=== PATIENT | female | born 1960 | race African-American/Black ===

== ENCOUNTER 2023-03-02 15:53 | Inpatient (IN) | payer OTHER, BC ==
[2023-03-02 21:10] LABS: BASO % 0.7 % (0-2.0); EOS % 3.8 % (0-4.5); HEMATOCRIT 38.8 % (32.4-45.2); HEMOGLOBIN 11.8 GM/dL (10.7-15.3); LYMPH % 28.2 % (8-40); MCH 23.3 pg (25.7-33.7); MCHC 30.4 g/dl (32.0-36.0); MEAN CELL VOLUME 76.5 fl (80-96); MEAN PLT VOLUME 10.2 fl (7.5-11.1); MONO % 8.2 % (3.8-10.2); NEUT % 59.1 % (42.8-82.8); PLATELET COUNT 176 10^3/uL (134-434); RBC 5.07 M/mm3 (3.60-5.2); RDW 17.1 % (11.6-15.6); WHITE BLOOD COUNT 7.9 K/mm3 (4.0-10.0)
[2023-03-02 21:36] LABS: POTASSIUM 3.9 mmol/L (3.5-5.1)
[2023-03-02 21:38] LABS: CALCIUM 9.3 mg/dL (8.5-10.1)
[2023-03-02 21:39] LABS: ALBUMIN 3.7 g/dl (3.4-5.0); BLOOD UREA NITROGEN 9.6 mg/dL (7-18)
[2023-03-02 21:42] LABS: CREATININE 0.4 mg/dL (0.55-1.3)
[2023-03-02 21:44] LABS: BILIRUBIN,TOTAL 0.5 mg/dL (0.2-1); TOT PROT 5.6 g/dl (6.4-8.2)
[2023-03-02 22:12] LABS: INR 1.14 (0.83-1.09); PROTHROMBIN TIME (PATIENT) 13.2 SEC (9.7-13.0)
[2023-03-02 22:14] LABS: ACTIVATED PTT 35.4 SECONDS (25.2-36.5)
[2023-03-02] MEDS ORDERED: MEROPENEM 1 GM in DEXTROSE 5%-WATER 100 ML IVPB ONE (22:18)
[2023-03-02] MEDS ORDERED: CEFTRIAXONE 1 GM in DEXTROSE 5%-WATER - 50 ML IVPB ONE (22:19)
[2023-03-02] MEDS ORDERED: CEFTRIAXONE 1 GM/50 ML BAG ONE (22:21)
[2023-03-02] MEDS ORDERED: MEROPENEM 1 GM VIAL (RESTRICTED TO ID) IVPB ONE (23:01)
[2023-03-03] MEDS ORDERED: MEROPENEM 500 MG in DEXTROSE 5%-WATER 100 ML IVPB SCH (02:00)
[2023-03-03] MEDS ORDERED: NITROGLYCERIN SUBLINGUAL 1/150 0.4 MG TAB SL PRN (02:19)
[2023-03-03] MEDS ORDERED: PATIENT'S OWN MEDICATION (NON-FORMULARY) (Lactose-Reduced Food/Fiber [Jevity 1.5 Cal Liqui PO SCH (02:20)
[2023-03-03] MEDS ORDERED: PANTOPRAZOLE SOD 40 MG SUSPENSION PACKET PO SCH (02:20)
[2023-03-03] MEDS: MEROPENEM 500 MG in DEXTROSE 5%-WATER 100 ML IVPB SCH ×2 (03:20→12:03)
[2023-03-03] MEDS: PATIENT'S OWN MEDICATION (NON-FORMULARY) (Omeprazole/Sodium Bicarbonate [Omeprazole-Bicarb PO SCH (03:37)
[2023-03-03] MEDS: ACETAMINOPHEN 1000 MG/100 ML BAG IVPB PRN ×3 (03:50→22:11)
[2023-03-03] MEDS ORDERED: [UNRECOGNIZED DRUG - OTHER] TP SCH (10:00)
[2023-03-03] MEDS ORDERED: CHOLECALCIFEROL (VIT D3) 5000 UNITS (125 MCG) CAP PO SCH (10:00)
[2023-03-03] MEDS: METOPROLOL TARTRATE 25 MG TABLET (FP) PO SCH ×3 (10:00→22:04)
[2023-03-03] MEDS ORDERED: DOCUSATE SODIUM 100 MG CAPSULE (FP) PO SCH (10:00)
[2023-03-03] MEDS ORDERED: METOPROLOL TARTRATE 25 MG TABLET (FP) PO SCH (10:00)
[2023-03-03] MEDS: FERROUS SO4 325 MG TABLET (FP) PO SCH (10:11)
[2023-03-03] MEDS: ASPIRIN 81 MG CHEWABLE TABLETS PO SCH (10:11)
[2023-03-03] MEDS: ENOXAPARIN NA (PORCINE) 40 MG/0.4 ML DISP.SYRIN SQ SCH (10:11)
[2023-03-03] MEDS: PANTOPRAZOLE 40 MG TABLET PO SCH ×2 (10:11→22:03)
[2023-03-03] MEDS ORDERED: DOXYCYCLINE INJECTION 100 MG in DEXTROSE 5%-WATER 100 ML IVPB SCH (10:45)
[2023-03-03 11:28] LABS: CHLORIDE 110 mmol/L (98-107); SODIUM 145 mmol/L (136-145)
[2023-03-03 11:45] LABS: BASO % 0.8 % (0-2.0); EOS % 3.2 % (0-4.5); HEMATOCRIT 41.8 % (32.4-45.2); HEMOGLOBIN 12.2 GM/dL (10.7-15.3); LYMPH % 31.2 % (8-40); MCHC 29.1 g/dl (32.0-36.0); MEAN CELL VOLUME 79.2 fl (80-96); MONO % 9.6 % (3.8-10.2); NEUT % 55.2 % (42.8-82.8); PLATELET COUNT 168 10^3/uL (134-434); RBC 5.28 M/mm3 (3.60-5.2); RDW 17.4 % (11.6-15.6)
[2023-03-03 11:49] LABS: IRON SERUM 22 ug/dL (50-175); TOTAL IRON BINDING CAPACITY 311 ug/dL (250-450)
[2023-03-03 12:26] LABS: ANION GAP 17 MMOL/L (8-16); CO2 18 mmol/L (21-32)
[2023-03-03 12:27] LABS: CALCIUM 9.3 mg/dL (8.5-10.1); ERYTHROCYTE SEDIMENTATION RATE 8 mm/hr (0-30)
[2023-03-03 12:28] LABS: ALBUMIN 3.4 g/dl (3.4-5.0); BLOOD UREA NITROGEN 12.3 mg/dL (7-18)
[2023-03-03 12:31] LABS: CREATININE 0.4 mg/dL (0.55-1.3); PHOSPHOROUS 3.3 mg/dL (2.5-4.9); SGOT/AST 10 U/L (15-37); SGPT/ALT 9 U/L (13-61)
[2023-03-03 12:32] LABS: BILIRUBIN,TOTAL 0.6 mg/dL (0.2-1); GLUCOSE,RANDOM 39 mg/dL (74-106); TOT PROT 5.6 g/dl (6.4-8.2)
[2023-03-03 12:33] LABS: ALK PHOS 139 U/L (45-117)
[2023-03-03] MEDS ORDERED: CHOLECALCIFEROL (VIT D3 5000 UNITS) 125 MCG TAB PO SCH (14:15)
[2023-03-03] MEDS ORDERED: IRON SUCROSE INJECTION 200 MG in SODIUM CHLORIDE 90 ML IVPB ONE (14:30)
[2023-03-03] MEDS: DOCUSATE NA 100 MG/10 ML UNIT-DOSE CUPS PO SCH (15:00)
[2023-03-03] MEDS: MEROPENEM 1 GM in DEXTROSE 5%-WATER 100 ML IVPB SCH (17:29)
[2023-03-03 19:31] LABS: POTASSIUM 4.3 mmol/L (3.5-5.1)
[2023-03-03 19:32] LABS: CALCIUM 8.7 mg/dL (8.5-10.1)
[2023-03-03 19:33] LABS: BLOOD UREA NITROGEN 11.6 mg/dL (7-18)
[2023-03-03 19:36] LABS: CREATININE 0.5 mg/dL (0.55-1.3)
[2023-03-04] MEDS: MEROPENEM 1 GM in DEXTROSE 5%-WATER 100 ML IVPB SCH ×3 (02:02→18:30)
[2023-03-04] MEDS: MEROPENEM 500 MG in DEXTROSE 5%-WATER 100 ML IVPB SCH ×2 (07:54→07:55)
[2023-03-04] MEDS ORDERED: MEROPENEM 1 GM VIAL (RESTRICTED TO ID) IVPB ONE (10:36)
[2023-03-04 10:54] LABS: BASO % 0.9 % (0-2.0); EOS % 10.6 % (0-4.5); HEMATOCRIT 41.4 % (32.4-45.2); LYMPH % 28.3 % (8-40); MCH 23.7 pg (25.7-33.7); MCHC 31.3 g/dl (32.0-36.0); MEAN CELL VOLUME 75.6 fl (80-96); MEAN PLT VOLUME 10.9 fl (7.5-11.1); MONO % 11.9 % (3.8-10.2); NEUT % 48.3 % (42.8-82.8); RBC 5.48 M/mm3 (3.60-5.2); RDW 17.1 % (11.6-15.6); WHITE BLOOD COUNT 7.5 K/mm3 (4.0-10.0)
[2023-03-04] MEDS: ENOXAPARIN NA (PORCINE) 40 MG/0.4 ML DISP.SYRIN SQ SCH (11:09)
[2023-03-04] MEDS: PANTOPRAZOLE 40 MG TABLET PO SCH ×2 (11:09→21:52)
[2023-03-04] MEDS: METOPROLOL TARTRATE 25 MG TABLET (FP) PO SCH ×2 (11:09→21:52)
[2023-03-04] MEDS: DOCUSATE NA 100 MG/10 ML UNIT-DOSE CUPS PO SCH (11:09)
[2023-03-04] MEDS: FERROUS SO4 325 MG TABLET (FP) PO SCH (11:09)
[2023-03-04] MEDS: ASPIRIN 81 MG CHEWABLE TABLETS PO SCH (11:09)
[2023-03-04] MEDS: CHOLECALCIFEROL (VIT D3 5000 UNITS) 125 MCG TAB PO SCH (11:10)
[2023-03-04 11:14] LABS: ALBUMIN 3.1 g/dl (3.4-5.0); BILIRUBIN,TOTAL 0.4 mg/dL (0.2-1); BLOOD UREA NITROGEN 6.7 mg/dL (7-18); CALCIUM 9.1 mg/dL (8.5-10.1); CREATININE 0.4 mg/dL (0.55-1.3); MAGNESIUM 1.9 mg/dL (1.8-2.4); PHOSPHOROUS 2.5 mg/dL (2.5-4.9); POTASSIUM 4.3 mmol/L (3.5-5.1); TOT PROT 5.5 g/dl (6.4-8.2)
[2023-03-04 11:58] LABS: PLATELET COUNT 179 10^3/uL (134-434)
[2023-03-04 12:38] VITALS: BMI 18.1
[2023-03-04] MEDS: oxyCODONE HCL 5 MG TABLET PO PRN (15:31)
[2023-03-04] MEDS: COLLAGENASE CLOSTRIDIUM HIST. 30 GRAMS TUBE TP SCH (16:30)
[2023-03-05] MEDS: MEROPENEM 1 GM in DEXTROSE 5%-WATER 100 ML IVPB SCH ×3 (01:20→17:15)
[2023-03-05] MEDS: ACETAMINOPHEN 1000 MG/100 ML BAG IVPB PRN ×2 (07:23→17:13)
[2023-03-05 09:16] LABS: BASO % 0.5 % (0-2.0); EOS % 9.2 % (0-4.5); HEMATOCRIT 39.8 % (32.4-45.2); HEMOGLOBIN 12.1 GM/dL (10.7-15.3); LYMPH % 34.1 % (8-40); MCH 23.5 pg (25.7-33.7); MCHC 30.4 g/dl (32.0-36.0); MEAN CELL VOLUME 77.2 fl (80-96); MEAN PLT VOLUME 10.4 fl (7.5-11.1); MONO % 11.4 % (3.8-10.2); NEUT % 44.8 % (42.8-82.8); PLATELET COUNT 186 10^3/uL (134-434); RBC 5.16 M/mm3 (3.60-5.2); RDW 17.3 % (11.6-15.6); WHITE BLOOD COUNT 7.8 K/mm3 (4.0-10.0)
[2023-03-05 09:43] LABS: POTASSIUM 4.4 mmol/L (3.5-5.1)
[2023-03-05] MEDS: ENOXAPARIN NA (PORCINE) 40 MG/0.4 ML DISP.SYRIN SQ SCH (09:44)
[2023-03-05] MEDS: DOCUSATE NA 100 MG/10 ML UNIT-DOSE CUPS PO SCH (09:44)
[2023-03-05] MEDS: PANTOPRAZOLE 40 MG TABLET PO SCH ×2 (09:44→21:25)
[2023-03-05] MEDS: METOPROLOL TARTRATE 25 MG TABLET (FP) PO SCH ×2 (09:45→21:25)
[2023-03-05] MEDS: FERROUS SO4 325 MG TABLET (FP) PO SCH (09:45)
[2023-03-05] MEDS: ASPIRIN 81 MG CHEWABLE TABLETS PO SCH (09:45)
[2023-03-05 09:46] LABS: BLOOD UREA NITROGEN 10.5 mg/dL (7-18)
[2023-03-05 09:47] LABS: ALBUMIN 2.8 g/dl (3.4-5.0); MAGNESIUM 1.9 mg/dL (1.8-2.4)
[2023-03-05] MEDS: COLLAGENASE CLOSTRIDIUM HIST. 30 GRAMS TUBE TP SCH (09:48)
[2023-03-05 09:49] LABS: PHOSPHOROUS 2.3 mg/dL (2.5-4.9)
[2023-03-05 09:50] LABS: CREATININE 0.5 mg/dL (0.55-1.3)
[2023-03-05] MEDS: CHOLECALCIFEROL (VIT D3 5000 UNITS) 125 MCG TAB PO SCH (09:50)
[2023-03-05 09:51] LABS: BILIRUBIN,TOTAL 0.5 mg/dL (0.2-1); TOT PROT 4.9 g/dl (6.4-8.2)
[2023-03-05] MEDS: PATIENT'S OWN MEDICATION (NON-FORMULARY) (Omeprazole/Sodium Bicarbonate [Omeprazole-Bicarb PO SCH ×2 (11:56→11:57)
[2023-03-05] MEDS: SILVER SULFADIAZINE 1% TOP CREAM 50 GM JAR TP SCH ×2 (12:15→21:25)
[2023-03-05] MEDS ORDERED: NAPH,MB-DB/K PH,MBDB POWDER PACKET PO ONE (17:17)
[2023-03-06] MEDS: MEROPENEM 1 GM in DEXTROSE 5%-WATER 100 ML IVPB SCH ×3 (01:00→19:55)
[2023-03-06] MEDS: METOPROLOL TARTRATE 25 MG TABLET (FP) PO SCH ×2 (09:18→21:20)
[2023-03-06] MEDS: ASPIRIN 81 MG CHEWABLE TABLETS PO SCH (09:18)
[2023-03-06] MEDS: PANTOPRAZOLE 40 MG TABLET PO SCH ×2 (09:18→21:20)
[2023-03-06] MEDS: FERROUS SO4 325 MG TABLET (FP) PO SCH (09:18)
[2023-03-06] MEDS: CHOLECALCIFEROL (VIT D3) 5000 UNITS (125 MCG) CAP PO SCH (09:19)
[2023-03-06] MEDS: DOCUSATE NA 100 MG/10 ML UNIT-DOSE CUPS PO SCH (09:19)
[2023-03-06] MEDS: ENOXAPARIN NA (PORCINE) 40 MG/0.4 ML DISP.SYRIN SQ SCH (09:21)
[2023-03-06 11:35] LABS: POTASSIUM 4.9 mmol/L (3.5-5.1)
[2023-03-06 11:37] LABS: CALCIUM 9.3 mg/dL (8.5-10.1)
[2023-03-06 11:38] LABS: ALBUMIN 2.8 g/dl (3.4-5.0); BLOOD UREA NITROGEN 14.8 mg/dL (7-18)
[2023-03-06 11:41] LABS: CREATININE 0.4 mg/dL (0.55-1.3); PHOSPHOROUS 2.5 mg/dL (2.5-4.9)
[2023-03-06 11:44] LABS: BILIRUBIN,TOTAL 0.3 mg/dL (0.2-1)
[2023-03-06] MEDS: SILVER SULFADIAZINE 1% TOP CREAM 50 GM JAR TP SCH ×2 (12:43→21:20)
[2023-03-06] MEDS: oxyCODONE HCL 5 MG TABLET PO PRN (14:57)
[2023-03-06 15:47] LABS: BASO % 0.7 % (0-2.0); EOS % 9.3 % (0-4.5); HEMATOCRIT 38.1 % (32.4-45.2); HEMOGLOBIN 11.3 GM/dL (10.7-15.3); LYMPH % 36.4 % (8-40); MCH 22.9 pg (25.7-33.7); MCHC 29.6 g/dl (32.0-36.0); MEAN CELL VOLUME 77.4 fl (80-96); MEAN PLT VOLUME 10.6 fl (7.5-11.1); MONO % 11.8 % (3.8-10.2); NEUT % 41.8 % (42.8-82.8); PLATELET COUNT 177 10^3/uL (134-434); RBC 4.92 M/mm3 (3.60-5.2); RDW 17.2 % (11.6-15.6); WHITE BLOOD COUNT 8.7 K/mm3 (4.0-10.0)
[2023-03-07] MEDS: MEROPENEM 1 GM in DEXTROSE 5%-WATER 100 ML IVPB SCH ×3 (02:30→17:55)
[2023-03-07] MEDS: PANTOPRAZOLE 40 MG TABLET PO SCH ×2 (09:17→21:17)
[2023-03-07] MEDS: METOPROLOL TARTRATE 25 MG TABLET (FP) PO SCH ×2 (09:17→21:17)
[2023-03-07] MEDS: ASPIRIN 81 MG CHEWABLE TABLETS PO SCH (09:17)
[2023-03-07] MEDS: FERROUS SO4 325 MG TABLET (FP) PO SCH (09:17)
[2023-03-07] MEDS: DOCUSATE NA 100 MG/10 ML UNIT-DOSE CUPS PO SCH ×2 (09:18→09:39)
[2023-03-07] MEDS: CHOLECALCIFEROL (VIT D3) 5000 UNITS (125 MCG) CAP PO SCH (09:18)
[2023-03-07] MEDS: ENOXAPARIN NA (PORCINE) 40 MG/0.4 ML DISP.SYRIN SQ SCH (09:18)
[2023-03-07 10:39] LABS: BASO % 0.8 % (0-2.0); EOS % 9.6 % (0-4.5); HEMATOCRIT 36.6 % (32.4-45.2); HEMOGLOBIN 11.5 GM/dL (10.7-15.3); LYMPH % 25.3 % (8-40); MCH 24.1 pg (25.7-33.7); MCHC 31.4 g/dl (32.0-36.0); MEAN CELL VOLUME 76.7 fl (80-96); MEAN PLT VOLUME 10.4 fl (7.5-11.1); MONO % 11.3 % (3.8-10.2); PLATELET COUNT 168 10^3/uL (134-434); RBC 4.77 M/mm3 (3.60-5.2); RDW 17.1 % (11.6-15.6); WHITE BLOOD COUNT 7.8 K/mm3 (4.0-10.0)
[2023-03-07] MEDS: SILVER SULFADIAZINE 1% TOP CREAM 50 GM JAR TP SCH ×2 (10:46→21:18)
[2023-03-07] MEDS: oxyCODONE HCL 5 MG TABLET PO PRN ×2 (10:47→21:17)
[2023-03-07 11:01] LABS: POTASSIUM 4.5 mmol/L (3.5-5.1)
[2023-03-07 11:42] LABS: CALCIUM 9.3 mg/dL (8.5-10.1)
[2023-03-07 11:43] LABS: ALBUMIN 2.8 g/dl (3.4-5.0); BLOOD UREA NITROGEN 18.5 mg/dL (7-18)
[2023-03-07 11:46] LABS: CREATININE 0.4 mg/dL (0.55-1.3); PHOSPHOROUS 2.6 mg/dL (2.5-4.9)
[2023-03-07 11:48] LABS: BILIRUBIN,TOTAL 0.6 mg/dL (0.2-1)
[2023-03-08] MEDS: MEROPENEM 1 GM in DEXTROSE 5%-WATER 100 ML IVPB SCH ×3 (01:30→17:07)
[2023-03-08] MEDS ORDERED: MEROPENEM 1 GM VIAL (RESTRICTED TO ID) IVPB ONE (08:56)
[2023-03-08] MEDS: ENOXAPARIN NA (PORCINE) 40 MG/0.4 ML DISP.SYRIN SQ SCH (09:08)
[2023-03-08] MEDS: DOCUSATE NA 100 MG/10 ML UNIT-DOSE CUPS PO SCH (09:08)
[2023-03-08] MEDS: METOPROLOL TARTRATE 25 MG TABLET (FP) PO SCH ×2 (09:08→21:15)
[2023-03-08] MEDS: FERROUS SO4 325 MG TABLET (FP) PO SCH (09:08)
[2023-03-08] MEDS: PANTOPRAZOLE 40 MG TABLET PO SCH ×2 (09:08→21:15)
[2023-03-08] MEDS: ASPIRIN 81 MG CHEWABLE TABLETS PO SCH (09:08)
[2023-03-08] MEDS: CHOLECALCIFEROL (VIT D3) 5000 UNITS (125 MCG) CAP PO SCH (09:09)
[2023-03-08] MEDS: oxyCODONE HCL 5 MG TABLET PO PRN (10:28)
[2023-03-08 10:40] LABS: BASO % 0.7 % (0-2.0); EOS % 9.6 % (0-4.5); LYMPH % 23.7 % (8-40); MCH 23.2 pg (25.7-33.7); MCHC 29.8 g/dl (32.0-36.0); MEAN PLT VOLUME 11.1 fl (7.5-11.1); MONO % 11.6 % (3.8-10.2); NEUT % 54.4 % (42.8-82.8); PLATELET COUNT 169 10^3/uL (134-434); RBC 4.75 M/mm3 (3.60-5.2); RDW 17.4 % (11.6-15.6)
[2023-03-08] MEDS: SILVER SULFADIAZINE 1% TOP CREAM 50 GM JAR TP SCH ×2 (11:14→21:15)
[2023-03-08 12:32] LABS: POTASSIUM 4.3 mmol/L (3.5-5.1)
[2023-03-08 13:02] LABS: ALBUMIN 2.9 g/dl (3.4-5.0); BLOOD UREA NITROGEN 16.7 mg/dL (7-18); CALCIUM 9.7 mg/dL (8.5-10.1); MAGNESIUM 2.3 mg/dL (1.8-2.4)
[2023-03-08 13:05] LABS: CREATININE 0.4 mg/dL (0.55-1.3)
[2023-03-08 13:06] LABS: TOT PROT 5.1 g/dl (6.4-8.2)
[2023-03-08 13:08] LABS: BILIRUBIN,TOTAL 0.4 mg/dL (0.2-1); PHOSPHOROUS 3.1 mg/dL (2.5-4.9)
[2023-03-09] MEDS: MEROPENEM 1 GM in DEXTROSE 5%-WATER 100 ML IVPB SCH ×3 (02:42→17:19)
[2023-03-09] MEDS: FERROUS SO4 325 MG TABLET (FP) PO SCH (09:48)
[2023-03-09] MEDS: PANTOPRAZOLE 40 MG TABLET PO SCH ×2 (09:48→22:08)
[2023-03-09] MEDS: oxyCODONE HCL 5 MG TABLET PO PRN ×3 (09:48→22:06)
[2023-03-09] MEDS: ASPIRIN 81 MG CHEWABLE TABLETS PO SCH (09:48)
[2023-03-09] MEDS: METOPROLOL TARTRATE 25 MG TABLET (FP) PO SCH ×2 (09:48→22:08)
[2023-03-09] MEDS: ENOXAPARIN NA (PORCINE) 40 MG/0.4 ML DISP.SYRIN SQ SCH (09:49)
[2023-03-09] MEDS: CHOLECALCIFEROL (VIT D3) 5000 UNITS (125 MCG) CAP PO SCH (09:49)
[2023-03-09] MEDS: DOCUSATE NA 100 MG/10 ML UNIT-DOSE CUPS PO SCH (10:03)
[2023-03-09 10:13] LABS: BASO % 1.1 % (0-2.0); EOS % 7.4 % (0-4.5); HEMATOCRIT 36.5 % (32.4-45.2); LYMPH % 29.7 % (8-40); MCH 23.3 pg (25.7-33.7); MEAN CELL VOLUME 77.4 fl (80-96); MEAN PLT VOLUME 11.3 fl (7.5-11.1); MONO % 10.5 % (3.8-10.2); NEUT % 51.3 % (42.8-82.8); PLATELET COUNT 175 10^3/uL (134-434); RBC 4.71 M/mm3 (3.60-5.2); RDW 17.4 % (11.6-15.6); WHITE BLOOD COUNT 7.3 K/mm3 (4.0-10.0)
[2023-03-09 10:34] LABS: POTASSIUM 4.5 mmol/L (3.5-5.1)
[2023-03-09 10:45] LABS: ALBUMIN 2.9 g/dl (3.4-5.0); BLOOD UREA NITROGEN 19.2 mg/dL (7-18); CALCIUM 9.3 mg/dL (8.5-10.1); MAGNESIUM 2.4 mg/dL (1.8-2.4)
[2023-03-09 10:48] LABS: CREATININE 0.4 mg/dL (0.55-1.3); PHOSPHOROUS 3.2 mg/dL (2.5-4.9)
[2023-03-09 10:49] LABS: BILIRUBIN,TOTAL 0.4 mg/dL (0.2-1); TOT PROT 5.3 g/dl (6.4-8.2)
[2023-03-09] MEDS: MULTIVIT-MINERALS ORAL LIQUID PO SCH (11:10)
[2023-03-09] MEDS: SILVER SULFADIAZINE 1% TOP CREAM 50 GM JAR TP SCH ×2 (11:25→22:08)
[2023-03-10] MEDS ORDERED: MEROPENEM 1 GM VIAL (RESTRICTED TO ID) IVPB ONE (03:18)
[2023-03-10] MEDS: MEROPENEM 1 GM in DEXTROSE 5%-WATER 100 ML IVPB SCH ×3 (03:20→17:25)
[2023-03-10] MEDS ORDERED: SODIUM CHLORIDE 1,000 ML IV STA (09:11)
[2023-03-10] MEDS: ENOXAPARIN NA (PORCINE) 40 MG/0.4 ML DISP.SYRIN SQ SCH (09:25)
[2023-03-10] MEDS: FERROUS SO4 325 MG TABLET (FP) PO SCH (09:25)
[2023-03-10] MEDS: CHOLECALCIFEROL (VIT D3) 5000 UNITS (125 MCG) CAP PO SCH (09:26)
[2023-03-10] MEDS: ASPIRIN 81 MG CHEWABLE TABLETS PO SCH (09:26)
[2023-03-10] MEDS: METOPROLOL TARTRATE 25 MG TABLET (FP) PO SCH ×2 (09:26→21:56)
[2023-03-10] MEDS: MULTIVIT-MINERALS ORAL LIQUID PO SCH (09:26)
[2023-03-10] MEDS: DOCUSATE NA 100 MG/10 ML UNIT-DOSE CUPS PO SCH (09:26)
[2023-03-10] MEDS: PANTOPRAZOLE 40 MG TABLET PO SCH ×2 (09:26→21:53)
[2023-03-10] MEDS ORDERED: COLLAGENASE CLOSTRIDIUM HIST. 30 GRAMS TUBE TP SCH (10:00)
[2023-03-10 10:17] LABS: BASO % 0.8 % (0-2.0); EOS % 7.2 % (0-4.5); HEMATOCRIT 37.1 % (32.4-45.2); HEMOGLOBIN 11.4 GM/dL (10.7-15.3); LYMPH % 25.1 % (8-40); MCH 23.5 pg (25.7-33.7); MCHC 30.7 g/dl (32.0-36.0); MEAN CELL VOLUME 76.7 fl (80-96); MEAN PLT VOLUME 10.4 fl (7.5-11.1); MONO % 10.1 % (3.8-10.2); NEUT % 56.8 % (42.8-82.8); PLATELET COUNT 167 10^3/uL (134-434); RBC 4.83 M/mm3 (3.60-5.2); RDW 17.5 % (11.6-15.6); WHITE BLOOD COUNT 7.4 K/mm3 (4.0-10.0)
[2023-03-10 10:31] LABS: POTASSIUM 4.8 mmol/L (3.5-5.1)
[2023-03-10 10:32] LABS: CALCIUM 9.3 mg/dL (8.5-10.1)
[2023-03-10 10:33] LABS: BLOOD UREA NITROGEN 21.4 mg/dL (7-18); MAGNESIUM 2.3 mg/dL (1.8-2.4)
[2023-03-10 10:36] LABS: CREATININE 0.4 mg/dL (0.55-1.3)
[2023-03-10 10:38] LABS: BILIRUBIN,TOTAL 0.4 mg/dL (0.2-1); TOT PROT 5.3 g/dl (6.4-8.2)
[2023-03-10] MEDS: oxyCODONE HCL 5 MG TABLET PO PRN (12:35)
[2023-03-10] MEDS: SILVER SULFADIAZINE 1% TOP CREAM 50 GM JAR TP SCH (13:17)
[2023-03-10] MEDS: SUCRALFATE 1 GM/10 ML UNIT DOSE CUPS PO SCH (21:53)
[2023-03-11] MEDS: MEROPENEM 1 GM in DEXTROSE 5%-WATER 100 ML IVPB SCH ×3 (02:13→17:25)
[2023-03-11] MEDS ORDERED: COLLAGENASE CLOSTRIDIUM HIST. 30 GRAMS TUBE TP SCH (10:00)
[2023-03-11] MEDS: SUCRALFATE 1 GM/10 ML UNIT DOSE CUPS PO SCH ×2 (10:14→22:15)
[2023-03-11] MEDS: ASPIRIN 81 MG CHEWABLE TABLETS PO SCH (10:15)
[2023-03-11] MEDS: METOPROLOL TARTRATE 25 MG TABLET (FP) PO SCH ×2 (10:15→22:15)
[2023-03-11] MEDS: PANTOPRAZOLE 40 MG TABLET PO SCH ×2 (10:15→22:15)
[2023-03-11] MEDS: FERROUS SO4 325 MG TABLET (FP) PO SCH (10:15)
[2023-03-11] MEDS: MULTIVIT-MINERALS ORAL LIQUID PO SCH (10:16)
[2023-03-11] MEDS: ENOXAPARIN NA (PORCINE) 40 MG/0.4 ML DISP.SYRIN SQ SCH (10:16)
[2023-03-11] MEDS: CHOLECALCIFEROL (VIT D3) 5000 UNITS (125 MCG) CAP PO SCH (10:16)
[2023-03-11 11:07] LABS: BASO % 0.8 % (0-2.0); EOS % 6.5 % (0-4.5); HEMOGLOBIN 11.2 GM/dL (10.7-15.3); LYMPH % 25.1 % (8-40); MCH 23.5 pg (25.7-33.7); MCHC 30.4 g/dl (32.0-36.0); MEAN CELL VOLUME 77.5 fl (80-96); MEAN PLT VOLUME 11.4 fl (7.5-11.1); MONO % 10.3 % (3.8-10.2); NEUT % 57.3 % (42.8-82.8); PLATELET COUNT 162 10^3/uL (134-434); RBC 4.77 M/mm3 (3.60-5.2); RDW 17.7 % (11.6-15.6); WHITE BLOOD COUNT 6.7 K/mm3 (4.0-10.0)
[2023-03-11 11:09] LABS: POTASSIUM 4.7 mmol/L (3.5-5.1)
[2023-03-11 11:18] LABS: ALBUMIN 2.9 g/dl (3.4-5.0); BLOOD UREA NITROGEN 19.6 mg/dL (7-18); CALCIUM 9.3 mg/dL (8.5-10.1); MAGNESIUM 2.3 mg/dL (1.8-2.4)
[2023-03-11 11:20] LABS: PHOSPHOROUS 2.6 mg/dL (2.5-4.9)
[2023-03-11 11:21] LABS: CREATININE 0.4 mg/dL (0.55-1.3)
[2023-03-11 11:22] LABS: BILIRUBIN,TOTAL 0.4 mg/dL (0.2-1); TOT PROT 5.3 g/dl (6.4-8.2)
[2023-03-11] MEDS ORDERED: LIDOCAINE HCL 5% TOP OINTMENT 50 GM TUBE TP ONE (15:30)
[2023-03-11] MEDS: oxyCODONE HCL 5 MG TABLET PO PRN (15:43)
[2023-03-12] MEDS: MEROPENEM 1 GM in DEXTROSE 5%-WATER 100 ML IVPB SCH ×3 (02:35→18:35)
[2023-03-12 08:56] LABS: EOS % 8.1 % (0-4.5); HEMOGLOBIN 10.8 GM/dL (10.7-15.3); LYMPH % 30.4 % (8-40); MCH 23.9 pg (25.7-33.7); MCHC 30.9 g/dl (32.0-36.0); MEAN CELL VOLUME 77.5 fl (80-96); MEAN PLT VOLUME 10.7 fl (7.5-11.1); MONO % 10.6 % (3.8-10.2); NEUT % 49.9 % (42.8-82.8); PLATELET COUNT 137 10^3/uL (134-434); RBC 4.51 M/mm3 (3.60-5.2); RDW 17.3 % (11.6-15.6)
[2023-03-12 09:10] LABS: POTASSIUM 4.9 mmol/L (3.5-5.1)
[2023-03-12 09:12] LABS: ALBUMIN 2.8 g/dl (3.4-5.0); CALCIUM 9.1 mg/dL (8.5-10.1); MAGNESIUM 2.3 mg/dL (1.8-2.4)
[2023-03-12 09:14] LABS: BLOOD UREA NITROGEN 18.9 mg/dL (7-18)
[2023-03-12 09:15] LABS: CREATININE 0.4 mg/dL (0.55-1.3); PHOSPHOROUS 2.8 mg/dL (2.5-4.9)
[2023-03-12] MEDS: ENOXAPARIN NA (PORCINE) 40 MG/0.4 ML DISP.SYRIN SQ SCH (09:16)
[2023-03-12] MEDS: SUCRALFATE 1 GM/10 ML UNIT DOSE CUPS PO SCH ×2 (09:16→21:34)
[2023-03-12 09:17] LABS: BILIRUBIN,TOTAL 0.4 mg/dL (0.2-1); TOT PROT 5.1 g/dl (6.4-8.2)
[2023-03-12] MEDS: FERROUS SO4 325 MG TABLET (FP) PO SCH (09:17)
[2023-03-12] MEDS: CHOLECALCIFEROL (VIT D3) 5000 UNITS (125 MCG) CAP PO SCH (09:17)
[2023-03-12] MEDS: METOPROLOL TARTRATE 25 MG TABLET (FP) PO SCH ×2 (09:17→21:34)
[2023-03-12] MEDS: PANTOPRAZOLE 40 MG TABLET PO SCH ×2 (09:17→21:34)
[2023-03-12] MEDS: MULTIVIT-MINERALS ORAL LIQUID PO SCH (09:17)
[2023-03-12] MEDS: oxyCODONE HCL 5 MG TABLET PO PRN (12:59)
[2023-03-13] MEDS: MEROPENEM 1 GM in DEXTROSE 5%-WATER 100 ML IVPB SCH ×3 (02:07→17:33)
[2023-03-13 09:36] LABS: BASO % 0.6 % (0-2.0); EOS % 8.1 % (0-4.5); HEMATOCRIT 36.2 % (32.4-45.2); HEMOGLOBIN 11.1 GM/dL (10.7-15.3); MCH 23.9 pg (25.7-33.7); MCHC 30.7 g/dl (32.0-36.0); MEAN CELL VOLUME 77.9 fl (80-96); MEAN PLT VOLUME 11.6 fl (7.5-11.1); MONO % 11.9 % (3.8-10.2); NEUT % 48.4 % (42.8-82.8); PLATELET COUNT 151 10^3/uL (134-434); RBC 4.64 M/mm3 (3.60-5.2); RDW 17.6 % (11.6-15.6); WHITE BLOOD COUNT 6.5 K/mm3 (4.0-10.0)
[2023-03-13 09:45] LABS: POTASSIUM 5.1 mmol/L (3.5-5.1)
[2023-03-13 09:47] LABS: CALCIUM 9.2 mg/dL (8.5-10.1)
[2023-03-13 09:48] LABS: ALBUMIN 2.9 g/dl (3.4-5.0); BLOOD UREA NITROGEN 21.3 mg/dL (7-18); MAGNESIUM 2.3 mg/dL (1.8-2.4)
[2023-03-13 09:51] LABS: CREATININE 0.4 mg/dL (0.55-1.3)
[2023-03-13 09:52] LABS: TOT PROT 5.1 g/dl (6.4-8.2)
[2023-03-13 09:53] LABS: BILIRUBIN,TOTAL 0.4 mg/dL (0.2-1)
[2023-03-13 09:54] LABS: PHOSPHOROUS 2.9 mg/dL (2.5-4.9)
[2023-03-13] MEDS: ENOXAPARIN NA (PORCINE) 40 MG/0.4 ML DISP.SYRIN SQ SCH (10:17)
[2023-03-13] MEDS: PANTOPRAZOLE 40 MG TABLET PO SCH ×2 (10:17→21:30)
[2023-03-13] MEDS: FERROUS SO4 325 MG TABLET (FP) PO SCH (10:17)
[2023-03-13] MEDS: METOPROLOL TARTRATE 25 MG TABLET (FP) PO SCH ×2 (10:17→21:30)
[2023-03-13] MEDS: SUCRALFATE 1 GM/10 ML UNIT DOSE CUPS PO SCH ×2 (10:17→21:30)
[2023-03-13] MEDS: CHOLECALCIFEROL (VIT D3) 5000 UNITS (125 MCG) CAP PO SCH (10:21)
[2023-03-13] MEDS: MULTIVIT-MINERALS ORAL LIQUID PO SCH (10:21)
[2023-03-13] MEDS: oxyCODONE HCL 5 MG TABLET PO PRN (10:32)
[2023-03-13] MEDS: SILVER SULFADIAZINE 1% TOP CREAM 400 GM JAR TP SCH (10:37)
[2023-03-14] MEDS: MEROPENEM 1 GM in DEXTROSE 5%-WATER 100 ML IVPB SCH ×3 (01:50→17:44)
[2023-03-14] MEDS: METOPROLOL TARTRATE 25 MG TABLET (FP) PO SCH ×2 (10:44→21:32)
[2023-03-14] MEDS: PANTOPRAZOLE 40 MG TABLET PO SCH ×2 (10:46→21:32)
[2023-03-14] MEDS: FERROUS SO4 325 MG TABLET (FP) PO SCH (10:46)
[2023-03-14] MEDS: SUCRALFATE 1 GM/10 ML UNIT DOSE CUPS PO SCH ×2 (10:47→21:32)
[2023-03-14] MEDS: ENOXAPARIN NA (PORCINE) 40 MG/0.4 ML DISP.SYRIN SQ SCH (10:59)
[2023-03-14] MEDS: SILVER SULFADIAZINE 1% TOP CREAM 400 GM JAR TP SCH (11:00)
[2023-03-14] MEDS: MULTIVIT-MINERALS ORAL LIQUID PO SCH (11:00)
[2023-03-14] MEDS: CHOLECALCIFEROL (VIT D3) 5000 UNITS (125 MCG) CAP PO SCH (11:01)
[2023-03-14 11:05] LABS: BASO % 0.7 % (0-2.0); EOS % 8.4 % (0-4.5); HEMATOCRIT 39.9 % (32.4-45.2); HEMOGLOBIN 12.2 GM/dL (10.7-15.3); LYMPH % 33.5 % (8-40); MCH 23.8 pg (25.7-33.7); MCHC 30.7 g/dl (32.0-36.0); MEAN CELL VOLUME 77.6 fl (80-96); MONO % 10.1 % (3.8-10.2); NEUT % 47.3 % (42.8-82.8); PLATELET COUNT 145 10^3/uL (134-434); RBC 5.15 M/mm3 (3.60-5.2); RDW 17.3 % (11.6-15.6); WHITE BLOOD COUNT 7.7 K/mm3 (4.0-10.0)
[2023-03-14 12:12] LABS: POTASSIUM 4.8 mmol/L (3.5-5.1)
[2023-03-14 12:15] LABS: BLOOD UREA NITROGEN 26.1 mg/dL (7-18); CALCIUM 9.4 mg/dL (8.5-10.1)
[2023-03-14 12:16] LABS: ALBUMIN 3.1 g/dl (3.4-5.0); MAGNESIUM 2.5 mg/dL (1.8-2.4)
[2023-03-14 12:19] LABS: CREATININE 0.4 mg/dL (0.55-1.3); PHOSPHOROUS 3.1 mg/dL (2.5-4.9)
[2023-03-14 12:20] LABS: BILIRUBIN,TOTAL 0.4 mg/dL (0.2-1)
[2023-03-14 12:22] LABS: TOT PROT 5.5 g/dl (6.4-8.2)
[2023-03-14] MEDS: oxyCODONE HCL 5 MG TABLET PO PRN (14:01)
[2023-03-14 18:59] LABS: INR 1.08 (0.83-1.09); PROTHROMBIN TIME (PATIENT) 12.5 SEC (9.7-13.0)
[2023-03-14 19:02] LABS: ACTIVATED PTT 40.8 SECONDS (25.2-36.5)
[2023-03-14] MEDS ORDERED: DEXTROSE 5%-0.45% SALINE 1,000 ML IV SCH (20:00)
[2023-03-15] MEDS: MEROPENEM 1 GM in DEXTROSE 5%-WATER 100 ML IVPB SCH ×3 (01:29→17:13)
[2023-03-15] MEDS: FERROUS SO4 325 MG TABLET (FP) PO SCH (09:11)
[2023-03-15] MEDS: PANTOPRAZOLE 40 MG TABLET PO SCH ×2 (09:11→21:57)
[2023-03-15] MEDS: METOPROLOL TARTRATE 25 MG TABLET (FP) PO SCH ×2 (09:11→21:57)
[2023-03-15] MEDS: MULTIVIT-MINERALS ORAL LIQUID PO SCH (09:12)
[2023-03-15] MEDS: SUCRALFATE 1 GM/10 ML UNIT DOSE CUPS PO SCH ×2 (09:12→21:57)
[2023-03-15] MEDS: CHOLECALCIFEROL (VIT D3) 5000 UNITS (125 MCG) CAP PO SCH (09:12)
[2023-03-15 10:20] LABS: HEMATOCRIT 34.7 % (32.4-45.2); HEMOGLOBIN 10.8 GM/dL (10.7-15.3); INR 1.08 (0.83-1.09); MCHC 31.2 g/dl (32.0-36.0); MEAN PLT VOLUME 10.9 fl (7.5-11.1); PLATELET COUNT 137 10^3/uL (134-434); PROTHROMBIN TIME (PATIENT) 12.5 SEC (9.7-13.0); RBC 4.51 M/mm3 (3.60-5.2); RDW 17.7 % (11.6-15.6); WHITE BLOOD COUNT 6.6 K/mm3 (4.0-10.0)
[2023-03-15] MEDS: SILVER SULFADIAZINE 1% TOP CREAM 400 GM JAR TP SCH (10:21)
[2023-03-15 10:23] LABS: ACTIVATED PTT 36.2 SECONDS (25.2-36.5)
[2023-03-15 10:35] LABS: CALCIUM 9.5 mg/dL (8.5-10.1)
[2023-03-15 10:36] LABS: BLOOD UREA NITROGEN 24.4 mg/dL (7-18); MAGNESIUM 2.5 mg/dL (1.8-2.4)
[2023-03-15 10:39] LABS: CREATININE 0.4 mg/dL (0.55-1.3); PHOSPHOROUS 3.2 mg/dL (2.5-4.9)
[2023-03-15] MEDS ORDERED: BUPIVACAINE HCL/PF 0.25% (2.5MG/ML) 10 ML VIAL ONE (13:08)
[2023-03-15] MEDS ORDERED: PROPOFOL 20 ML ONE (13:19)
[2023-03-15] MEDS ORDERED: MIDAZOLAM HCL 2 MG/2 ML SINGLE DOSE VIAL ONE ×2 (13:19→14:23)
[2023-03-15] MEDS ORDERED: BUPIVACAINE HCL/PF 0.25% (2.5MG/ML) 10 ML VIAL IJ ONE (13:40)
[2023-03-15] MEDS ORDERED: LIDO 2%/EPI 1:200000 PRESRVFRE (20 ML SDVIAL) INF ONE (13:40)
[2023-03-15] MEDS ORDERED: ONDANSETRON 4 MG/2 ML VIAL IVPUSH PRN ×2 (15:39→16:27)
[2023-03-15] MEDS ORDERED: LACTATED RINGERS SOLUTION 1,000 ML IV SCH (15:45)
[2023-03-15] MEDS ORDERED: NITROGLYCERIN SUBLINGUAL 1/150 0.4 MG TAB SL PRN (16:27)
[2023-03-15] MEDS: DEXTROSE 5%-0.45% SALINE 1,000 ML IV SCH (17:14)
[2023-03-15] MEDS ORDERED: [UNRECOGNIZED DRUG - OTHER] TP SCH (22:00)
[2023-03-16] MEDS: oxyCODONE HCL 5 MG TABLET PO PRN ×4 (00:25→21:04)
[2023-03-16] MEDS: MEROPENEM 1 GM in DEXTROSE 5%-WATER 100 ML IVPB SCH ×3 (01:34→17:22)
[2023-03-16] MEDS: DEXTROSE 5%-0.45% SALINE 1,000 ML IV SCH ×2 (08:42→17:18)
[2023-03-16 09:50] LABS: HEMATOCRIT 36.6 % (32.4-45.2); HEMOGLOBIN 11.2 GM/dL (10.7-15.3); MCH 23.8 pg (25.7-33.7); MCHC 30.7 g/dl (32.0-36.0); MEAN CELL VOLUME 77.6 fl (80-96); MEAN PLT VOLUME 11.4 fl (7.5-11.1); PLATELET COUNT 149 10^3/uL (134-434); RBC 4.72 M/mm3 (3.60-5.2); WHITE BLOOD COUNT 6.2 K/mm3 (4.0-10.0)
[2023-03-16 10:13] LABS: POTASSIUM 4.5 mmol/L (3.5-5.1)
[2023-03-16 10:15] LABS: BLOOD UREA NITROGEN 19.1 mg/dL (7-18)
[2023-03-16 10:19] LABS: CREATININE 0.4 mg/dL (0.55-1.3)
[2023-03-16] MEDS: CHOLECALCIFEROL (VIT D3) 5000 UNITS (125 MCG) CAP PO SCH (10:38)
[2023-03-16] MEDS: PANTOPRAZOLE 40 MG TABLET PO SCH ×2 (10:38→21:04)
[2023-03-16] MEDS: FERROUS SO4 325 MG TABLET (FP) PO SCH (10:38)
[2023-03-16] MEDS: MULTIVIT-MINERALS ORAL LIQUID PO SCH (10:38)
[2023-03-16] MEDS: SUCRALFATE 1 GM/10 ML UNIT DOSE CUPS PO SCH ×2 (10:39→21:04)
[2023-03-16] MEDS: METOPROLOL TARTRATE 25 MG TABLET (FP) PO SCH ×2 (10:59→21:04)
[2023-03-17] MEDS: MEROPENEM 1 GM in DEXTROSE 5%-WATER 100 ML IVPB SCH ×2 (01:00→10:30)
[2023-03-17] MEDS: oxyCODONE HCL 5 MG TABLET PO PRN ×3 (02:19→21:51)
[2023-03-17 08:11] LABS: BASO % 0.9 % (0-2.0); EOS % 11.5 % (0-4.5); HEMATOCRIT 35.4 % (32.4-45.2); HEMOGLOBIN 10.7 GM/dL (10.7-15.3); LYMPH % 28.9 % (8-40); MCH 23.9 pg (25.7-33.7); MCHC 30.3 g/dl (32.0-36.0); MEAN CELL VOLUME 78.9 fl (80-96); MEAN PLT VOLUME 11.7 fl (7.5-11.1); MONO % 11.3 % (3.8-10.2); NEUT % 47.4 % (42.8-82.8); PLATELET COUNT 134 10^3/uL (134-434); RBC 4.48 M/mm3 (3.60-5.2); RDW 17.6 % (11.6-15.6); WHITE BLOOD COUNT 6.2 K/mm3 (4.0-10.0)
[2023-03-17 08:22] LABS: POTASSIUM 4.9 mmol/L (3.5-5.1)
[2023-03-17 08:37] LABS: ALBUMIN 2.8 g/dl (3.4-5.0); BLOOD UREA NITROGEN 17.5 mg/dL (7-18); CALCIUM 9.2 mg/dL (8.5-10.1)
[2023-03-17 08:38] LABS: MAGNESIUM 2.3 mg/dL (1.8-2.4)
[2023-03-17 08:40] LABS: CREATININE 0.4 mg/dL (0.55-1.3)
[2023-03-17 08:42] LABS: BILIRUBIN,TOTAL 0.5 mg/dL (0.2-1)
[2023-03-17] MEDS: FERROUS SO4 325 MG TABLET (FP) PO SCH (10:32)
[2023-03-17] MEDS: PANTOPRAZOLE 40 MG TABLET PO SCH ×2 (10:32→21:52)
[2023-03-17] MEDS: SUCRALFATE 1 GM/10 ML UNIT DOSE CUPS PO SCH ×2 (10:32→21:52)
[2023-03-17] MEDS: METOPROLOL TARTRATE 25 MG TABLET (FP) PO SCH ×2 (10:32→21:52)
[2023-03-17] MEDS: MULTIVIT-MINERALS ORAL LIQUID PO SCH (10:33)
[2023-03-17] MEDS: CHOLECALCIFEROL (VIT D3) 5000 UNITS (125 MCG) CAP PO SCH (10:33)
[2023-03-17] MEDS: ACETAMINOPHEN 500 MG TABLET (FP) PO PRN (18:47)
[2023-03-17] MEDS ORDERED: MEROPENEM 1 GM in DEXTROSE 5%-WATER 100 ML IVPB ONE (19:41)
[2023-03-18 09:00] LABS: BASO % 0.5 % (0-2.0); HEMATOCRIT 38.4 % (32.4-45.2); HEMOGLOBIN 11.5 GM/dL (10.7-15.3); LYMPH % 28.5 % (8-40); MCH 23.8 pg (25.7-33.7); MCHC 29.9 g/dl (32.0-36.0); MEAN CELL VOLUME 79.5 fl (80-96); MEAN PLT VOLUME 11.8 fl (7.5-11.1); MONO % 8.6 % (3.8-10.2); NEUT % 53.4 % (42.8-82.8); PLATELET COUNT 146 10^3/uL (134-434); RBC 4.84 M/mm3 (3.60-5.2); RDW 17.3 % (11.6-15.6); WHITE BLOOD COUNT 7.4 K/mm3 (4.0-10.0)
[2023-03-18 09:34] LABS: POTASSIUM 4.7 mmol/L (3.5-5.1)
[2023-03-18] MEDS: METOPROLOL TARTRATE 25 MG TABLET (FP) PO SCH ×2 (09:41→21:47)
[2023-03-18] MEDS: ENOXAPARIN NA (PORCINE) 40 MG/0.4 ML DISP.SYRIN SQ SCH (09:41)
[2023-03-18] MEDS: FERROUS SO4 325 MG TABLET (FP) PO SCH (09:41)
[2023-03-18] MEDS: PANTOPRAZOLE 40 MG TABLET PO SCH ×2 (09:41→21:47)
[2023-03-18] MEDS: ASPIRIN COATED 81 MG TABLET.EC PO SCH (09:41)
[2023-03-18] MEDS: CHOLECALCIFEROL (VIT D3) 5000 UNITS (125 MCG) CAP PO SCH (09:42)
[2023-03-18] MEDS: MULTIVIT-MINERALS ORAL LIQUID PO SCH (09:42)
[2023-03-18] MEDS: SUCRALFATE 1 GM/10 ML UNIT DOSE CUPS PO SCH ×2 (09:42→21:47)
[2023-03-18 09:43] LABS: ALBUMIN 3.2 g/dl (3.4-5.0); CALCIUM 9.1 mg/dL (8.5-10.1)
[2023-03-18] MEDS: MEROPENEM 1 GM in DEXTROSE 5%-WATER 100 ML IVPB SCH ×4 (09:43→18:26)
[2023-03-18 09:44] LABS: BLOOD UREA NITROGEN 23.8 mg/dL (7-18); MAGNESIUM 2.4 mg/dL (1.8-2.4)
[2023-03-18 09:47] LABS: CREATININE 0.4 mg/dL (0.55-1.3)
[2023-03-18 09:48] LABS: BILIRUBIN,TOTAL 0.6 mg/dL (0.2-1); TOT PROT 5.2 g/dl (6.4-8.2)
[2023-03-18] MEDS: ACETAMINOPHEN 500 MG TABLET (FP) PO PRN ×2 (09:59→17:27)
[2023-03-18] MEDS ORDERED: MEROPENEM 1 GM in DEXTROSE 5%-WATER 100 ML IVPB SCH (10:00)
[2023-03-18] MEDS: IRON SUCROSE INJECTION 200 MG in SODIUM CHLORIDE 90 ML IVPB ONE ×2 (12:48→14:21)
[2023-03-18] MEDS: oxyCODONE HCL 5 MG TABLET PO PRN (21:49)
[2023-03-19 01:11] VITALS: RESP 18
[2023-03-19] MEDS: MEROPENEM 1 GM in DEXTROSE 5%-WATER 100 ML IVPB SCH ×3 (01:19→18:08)
[2023-03-19 08:28] LABS: BASO % 0.8 % (0-2.0); EOS % 12.4 % (0-4.5); HEMATOCRIT 38.3 % (32.4-45.2); HEMOGLOBIN 11.5 GM/dL (10.7-15.3); MCH 23.9 pg (25.7-33.7); MCHC 30.1 g/dl (32.0-36.0); MEAN CELL VOLUME 79.5 fl (80-96); MEAN PLT VOLUME 11.8 fl (7.5-11.1); MONO % 9.4 % (3.8-10.2); NEUT % 47.4 % (42.8-82.8); PLATELET COUNT 134 10^3/uL (134-434); RBC 4.82 M/mm3 (3.60-5.2); RDW 17.6 % (11.6-15.6); WHITE BLOOD COUNT 6.7 K/mm3 (4.0-10.0)
[2023-03-19 08:48] LABS: POTASSIUM 4.5 mmol/L (3.5-5.1)
[2023-03-19 08:52] LABS: CALCIUM 9.4 mg/dL (8.5-10.1)
[2023-03-19 08:53] LABS: ALBUMIN 2.9 g/dl (3.4-5.0); BLOOD UREA NITROGEN 25.8 mg/dL (7-18)
[2023-03-19 08:55] LABS: MAGNESIUM 2.4 mg/dL (1.8-2.4)
[2023-03-19 08:56] LABS: CREATININE 0.4 mg/dL (0.55-1.3)
[2023-03-19 08:57] LABS: BILIRUBIN,TOTAL 0.5 mg/dL (0.2-1); TOT PROT 5.3 g/dl (6.4-8.2)
[2023-03-19] MEDS: METOPROLOL TARTRATE 25 MG TABLET (FP) PO SCH ×2 (09:38→21:22)
[2023-03-19] MEDS: ASPIRIN COATED 81 MG TABLET.EC PO SCH (09:38)
[2023-03-19] MEDS: SUCRALFATE 1 GM/10 ML UNIT DOSE CUPS PO SCH ×5 (09:38→21:22)
[2023-03-19] MEDS: ENOXAPARIN NA (PORCINE) 40 MG/0.4 ML DISP.SYRIN SQ SCH (09:38)
[2023-03-19] MEDS: FERROUS SO4 325 MG TABLET (FP) PO SCH (09:38)
[2023-03-19] MEDS: MULTIVIT-MINERALS ORAL LIQUID PO SCH (09:43)
[2023-03-19] MEDS: ACETAMINOPHEN 500 MG TABLET (FP) PO PRN ×2 (10:03→21:28)
[2023-03-19] MEDS: PANTOPRAZOLE 40 MG TABLET PO SCH ×2 (10:04→21:22)
[2023-03-19] MEDS: CHOLECALCIFEROL (VIT D3) 5000 UNITS (125 MCG) CAP PO SCH (11:58)
[2023-03-20] MEDS: MEROPENEM 1 GM in DEXTROSE 5%-WATER 100 ML IVPB SCH ×3 (02:08→17:21)
[2023-03-20] MEDS: ACETAMINOPHEN 500 MG TABLET (FP) PO PRN ×3 (07:24→22:37)
[2023-03-20] MEDS: SUCRALFATE 1 GM/10 ML UNIT DOSE CUPS PO SCH ×2 (09:27→21:16)
[2023-03-20] MEDS: ENOXAPARIN NA (PORCINE) 40 MG/0.4 ML DISP.SYRIN SQ SCH (09:27)
[2023-03-20] MEDS: MULTIVIT-MINERALS ORAL LIQUID PO SCH (09:27)
[2023-03-20] MEDS: CHOLECALCIFEROL (VIT D3) 5000 UNITS (125 MCG) CAP PO SCH (09:28)
[2023-03-20] MEDS: PANTOPRAZOLE 40 MG TABLET PO SCH ×2 (09:28→21:16)
[2023-03-20] MEDS: ASPIRIN COATED 81 MG TABLET.EC PO SCH (09:28)
[2023-03-20] MEDS: METOPROLOL TARTRATE 25 MG TABLET (FP) PO SCH ×2 (09:28→21:16)
[2023-03-20] MEDS: FERROUS SO4 325 MG TABLET (FP) PO SCH (09:28)
[2023-03-21] MEDS: MEROPENEM 1 GM in DEXTROSE 5%-WATER 100 ML IVPB SCH ×2 (02:06→10:41)
[2023-03-21] MEDS: ACETAMINOPHEN 500 MG TABLET (FP) PO PRN ×2 (08:49→18:43)
[2023-03-21 09:46] LABS: HEMATOCRIT 38.9 % (32.4-45.2); HEMOGLOBIN 11.5 GM/dL (10.7-15.3); MCH 23.5 pg (25.7-33.7); MCHC 29.5 g/dl (32.0-36.0); MEAN CELL VOLUME 79.7 fl (80-96); MEAN PLT VOLUME 12.4 fl (7.5-11.1); PLATELET COUNT 136 10^3/uL (134-434); RBC 4.88 M/mm3 (3.60-5.2); RDW 17.7 % (11.6-15.6); WHITE BLOOD COUNT 6.7 K/mm3 (4.0-10.0)
[2023-03-21 09:52] LABS: POTASSIUM 4.8 mmol/L (3.5-5.1)
[2023-03-21 09:53] LABS: CALCIUM 9.3 mg/dL (8.5-10.1)
[2023-03-21 09:54] LABS: BLOOD UREA NITROGEN 21.8 mg/dL (7-18)
[2023-03-21 09:57] LABS: CREATININE 0.4 mg/dL (0.55-1.3)
[2023-03-21] MEDS: ENOXAPARIN NA (PORCINE) 40 MG/0.4 ML DISP.SYRIN SQ SCH (10:38)
[2023-03-21] MEDS: SUCRALFATE 1 GM/10 ML UNIT DOSE CUPS PO SCH ×2 (10:40→21:05)
[2023-03-21] MEDS: METOPROLOL TARTRATE 25 MG TABLET (FP) PO SCH ×2 (10:40→21:05)
[2023-03-21] MEDS: PANTOPRAZOLE 40 MG TABLET PO SCH ×2 (10:40→21:05)
[2023-03-21] MEDS: ASPIRIN COATED 81 MG TABLET.EC PO SCH (10:40)
[2023-03-21] MEDS: FERROUS SO4 325 MG TABLET (FP) PO SCH (10:41)
[2023-03-21] MEDS: CHOLECALCIFEROL (VIT D3) 5000 UNITS (125 MCG) CAP PO SCH (10:41)
[2023-03-21] MEDS: MULTIVIT-MINERALS ORAL LIQUID PO SCH (10:41)
[2023-03-22 05:13] VITALS: TEMP 97.7
[2023-03-22] MEDS: ACETAMINOPHEN 500 MG TABLET (FP) PO PRN ×2 (05:45→16:05)
[2023-03-22] MEDS: ASPIRIN COATED 81 MG TABLET.EC PO SCH (09:10)
[2023-03-22] MEDS: CHOLECALCIFEROL (VIT D3) 5000 UNITS (125 MCG) CAP PO SCH (09:10)
[2023-03-22] MEDS: METOPROLOL TARTRATE 25 MG TABLET (FP) PO SCH (09:10)
[2023-03-22] MEDS: FERROUS SO4 325 MG TABLET (FP) PO SCH (09:10)
[2023-03-22] MEDS: MULTIVIT-MINERALS ORAL LIQUID PO SCH (09:10)
[2023-03-22] MEDS: PANTOPRAZOLE 40 MG TABLET PO SCH (09:10)
[2023-03-22] MEDS: SUCRALFATE 1 GM/10 ML UNIT DOSE CUPS PO SCH (09:10)
[2023-03-22] MEDS: ENOXAPARIN NA (PORCINE) 40 MG/0.4 ML DISP.SYRIN SQ SCH (09:10)
[2023-03-22 10:14] LABS: HEMATOCRIT 39.6 % (32.4-45.2); HEMOGLOBIN 11.7 GM/dL (10.7-15.3); MCH 23.5 pg (25.7-33.7); MCHC 29.6 g/dl (32.0-36.0); MEAN CELL VOLUME 79.4 fl (80-96); MEAN PLT VOLUME 12.5 fl (7.5-11.1); PLATELET COUNT 144 10^3/uL (134-434); RBC 4.99 M/mm3 (3.60-5.2); RDW 17.9 % (11.6-15.6); WHITE BLOOD COUNT 5.6 K/mm3 (4.0-10.0)
[2023-03-22 10:25] LABS: POTASSIUM 4.7 mmol/L (3.5-5.1)
[2023-03-22 10:33] LABS: BLOOD UREA NITROGEN 24.2 mg/dL (7-18); CALCIUM 9.6 mg/dL (8.5-10.1)
[2023-03-22 10:37] LABS: CREATININE 0.4 mg/dL (0.55-1.3)
[2023-03-22 14:57] VITALS: BP 124/74; PULSE 86
[2023-03-22] MEDS ORDERED: oxyCODONE HCL 5 MG TABLET PO PRN (16:27)
== END 2023-03-22 20:43 | DRG 573 ==
LOC: JER 15:53 → JERBED 22:34 → J6S 03-03 01:54
PROVIDERS: ADMIT Internal Medicine; ATTEND Internal Medicine
PROC: 0HRKX74 Replacement of Right Lower Leg Skin with Autologous Tissue Substitute, Partial Thickness, External Approach (ICD-10-PCS; 2023-03-15)
PROC: 0HBJXZZ Excision of Left Upper Leg Skin, External Approach (ICD-10-PCS; 2023-03-15)
PROC: 2W1LX6Z Compression of Right Lower Extremity using Pressure Dressing (ICD-10-PCS; 2023-03-15)
PROC: 0JBN0ZZ Excision of Right Lower Leg Subcutaneous Tissue and Fascia, Open Approach (ICD-10-PCS; principal; 2023-03-15 12:00)
DX: L03.115 Cellulitis of right lower limb (principal); Q39.0 Atresia of esophagus without fistula; L97.818 Non-pressure chronic ulcer of other part of right lower leg with other specified severity; E87.20 Acidosis, unspecified; R64 Cachexia; Z68.1 Body mass index [BMI] 19.9 or less, adult; M34.89 Other systemic sclerosis; I25.10 Atherosclerotic heart disease of native coronary artery without angina pectoris; B95.4 Other streptococcus as the cause of diseases classified elsewhere; I25.2 Old myocardial infarction; M81.8 Other osteoporosis without current pathological fracture; I73.89 Other specified peripheral vascular diseases; B35.1 Tinea unguium; Z95.5 Presence of coronary angioplasty implant and graft; Z96.643 Presence of artificial hip joint, bilateral; Z96.653 Presence of artificial knee joint, bilateral
CPT/HCPCS: 36415; 73590-TC-RT-FY; 73630-TC-RT-FY; 73700-TC-RT; 80048; 80053; 82962; 83540; 83550; 83605; 83735; 84100; 85025; 85027; 85610; 85651; 85730; 86140; 86769; 86850; 86900; 86901; 87040; 87070; 87081; 87205; 87635; 88304-TC; 93005; 93010; 93306-TC; 93926-TC; 94760; 97116-GP; 97162-GP; 99285-25; G0463-25; J1756